=== PATIENT | male | born 1960 | race Caucasian/White ===

== ENCOUNTER 2019-06-23 11:04 | Emergency (ER) | payer OTHER ==
[~2019-06-23] VITALS: Ht 177.8 cm; Wt 90.7 kg
[~2019-06-23 11:04] MED LIST: ACIDOPHILUS; ASCO1ER PO; FISH1000 PO; GLUCHON PO; HYDACE5 PO; IBUP800 PO; MAGN PO; MULVITMIND PO; Norco 5-325 Ta1 EACH PO; TRAM50 PO; ZINC PO; [UNRECOGNIZED DRUG - OTHER] PO
[2019-06-23] MEDS ORDERED: Floxin10 ML LEFTEAR (12:19)
== END 2019-06-23 12:37 | disposition home or self-care (01) ==
LOC: ER 11:04
DX: H60.92 Unspecified otitis externa, left ear (principal); H61.22 Impacted cerumen, left ear; E78.00 Pure hypercholesterolemia, unspecified; Z91.040 Latex allergy status
CPT/HCPCS: 69209; 99283-25

== ENCOUNTER 2019-07-22 20:02 | Emergency (ER) | payer OTHER ==
[~2019-07-22] VITALS: Ht 177.8 cm; Wt 102.1 kg
[~2019-07-22 20:02] MED LIST changes: +Floxin10 ML LEFTEAR
[2019-07-22] MEDS ORDERED: METOPROLOL SUCC25 MG PO (20:28)
[2019-07-22] MEDS ORDERED: IRBESARTAN150 MG PO (20:28)
== END 2019-07-22 21:15 | disposition home or self-care (01) ==
LOC: ER 20:02
DX: I10 Essential (primary) hypertension (principal); F64.9 Gender identity disorder, unspecified; E78.00 Pure hypercholesterolemia, unspecified; Z91.040 Latex allergy status; Z79.899 Other long term (current) drug therapy
CPT/HCPCS: 36415; 93005; 93010; 99283-25

== ENCOUNTER 2023-03-20 16:22 | Emergency (ER) | payer OTHER ==
[~2023-03-20] VITALS: Ht 177.8 cm; Wt 81.7 kg
[~2023-03-20 16:22] MED LIST changes: +IRBESARTAN150 MG PO; +METOPROLOL SUCC25 MG PO
[2023-03-20 16:30] VITALS: BP 145/76
[2023-03-20] MEDS ORDERED: TRAZ50 PO (16:36)
[2023-03-20] MEDS ORDERED: ALPR.25 PO ×2 (16:54→16:55)
[2023-03-21] MEDS ORDERED: TRAZ100 PO (09:39)
[2023-03-21] MEDS ORDERED: ALPR.25 PO (09:39)
== END 2023-03-20 16:51 | disposition home or self-care (01) ==
LOC: ER 16:22
DX: G47.00 Insomnia, unspecified (principal); Z79.899 Other long term (current) drug therapy; E78.00 Pure hypercholesterolemia, unspecified; I10 Essential (primary) hypertension
CPT/HCPCS: 99283